=== PATIENT | female | born 1980 | race Caucasian/White ===

== ENCOUNTER 2017-06-09 14:00 | Emergency (ER) | payer SELFPAY ==
[~2017-06-09] VITALS: Ht 167.6 cm; Wt 95.0 kg
[2017-06-09] MEDS ORDERED: IBUPROFEN 800MG TABLET PO ONE (18:00)
[2017-06-09 22:10] VITALS: BP 118/77
== END 2017-06-09 22:13 | disposition home or self-care (01) ==
LOC: ER 14:08
DX: S82.141A Displaced bicondylar fracture of right tibia, initial encounter for closed fracture (principal); Z88.0 Allergy status to penicillin; Y04.0XXA Assault by unarmed brawl or fight, initial encounter; Y93.89 Activity, other specified; Y92.89 Other specified places as the place of occurrence of the external cause; Y99.8 Other external cause status
CPT/HCPCS: 29505; 73564; 99284; L1830

== ENCOUNTER 2020-01-14 17:34 | Emergency (ER) | payer MEDICAID, OTHER ==
[~2020-01-14] VITALS: Ht 157.5 cm; Wt 113.0 kg
[2020-01-14 19:14] VITALS: BP 123/70
== END 2020-01-14 19:16 | disposition home or self-care (01) ==
LOC: ER 17:34
DX: R21 Rash and other nonspecific skin eruption (principal); F41.9 Anxiety disorder, unspecified; E11.9 Type 2 diabetes mellitus without complications; J45.909 Unspecified asthma, uncomplicated; F32.9 Major depressive disorder, single episode, unspecified
CPT/HCPCS: 99283